=== PATIENT | female | born 1960 | race Caucasian/White ===

== ENCOUNTER 2016-10-06 08:51 | Emergency (ER) | payer BC ==
[2016-10-06 09:28] VITALS: BP 152/84
--- NOTE | 2016-10-06 10:23 | UC ---
Skin Complaint HPI - HPI Summary HPI Summary: Abscess under left arm---began draining this morning---had another one earlier in the week that has spontaneously drained and resolved - History of Current Complaint Chief Complaint: [facility] Time Seen by Provider: 10/06/16 10:09 Stated Complaint: BOIL IN ARMPIT Hx Obtained From: Patient ?: No Onset/Duration: Sudden Onset, Lasting Days - 3, Still Present Timing: Constant Onset Severity: Moderate Current Severity: Moderate Pain Intensity: 7 Pain Scale Used: 0-10 Numeric Location: Discrete - left axilla Character: Pain, Redness Aggravating: Touch Associated Signs & Symptoms: Positive: Negative - Allergy/Home Medications Allergies/Adverse Reactions: Allergies Allergy/AdvReac Type Severity Reaction Status Date / Time No Known Allergies Allergy Verified 10/06/16 09:18 Home Medications: Home Medications Aspirin EC Low Dose* [Ecotrin EC Low Dose 81 MG*] 1 tab DAILY 10/06/16 [History Confirmed 10/06/16] Multiple Vitamins W/ Minerals [Multivitamin Adults 50+] 1 tab DAILY 10/06/16 [ History Confirmed 10/06/16] Review of Systems Constitutional: Negative Skin: Other - Abscess left axilla some surrounding rash (pt has been soaking peroxide on skin) Eyes: Negative ENT: Negative Respiratory: Negative Cardiovascular: Negative Gastrointestinal: Negative Genitourinary: Negative Motor: Negative Neurovascular: Negative Musculoskeletal: Negative Neurological: Negative Psychological: Negative All Other Systems Reviewed And Are Negative: Yes PMH/Surg Hx/FS Hx/Imm Hx Previously Healthy: No Cardiovascular History: Hypertension - non adherant with treatment - Surgical History Surgical History: Yes Surgery Procedure, Year, and Place: CSP FUSION SURGERY. D&C - Family History Known Family History: Positive: None - Social History Occupation: Employed Full-time - house keeper at [employer] Lives: With Family Alcohol Use: None Substance Use Type: None Smoking Status (MU): Never Smoked Tobacco - Immunization History Most Recent Influenza Vaccination: 2016 Most Recent Tetanus Shot: UTD Physical Exam Triage Information Reviewed: Yes Appearance: Well-Appearing, No Pain Distress, Well-Nourished Vital Signs: Initial Vital Signs Temp 97.9 F 10/06/16 09:20 Pulse 67 10/06/16 09:20 Resp 18 10/06/16 09:20 BP 152/84 10/06/16 09:20 Pulse Ox 100 10/06/16 09:20 Vital Signs Reviewed: Yes Eye Exam: Normal Eyes: Positive: Conjunctiva Clear ENT Exam: Normal ENT: Positive: Normal ENT inspection, Hearing grossly normal. Negative: Nasal congestion, Nasal drainage, Trismus, Muffled/hoarse voice Dental Exam: Normal Neck exam: Normal Neck: Positive: Supple, Nontender Respiratory Exam: Normal Respiratory: Positive: Chest non-tender, No respiratory distress, No accessory muscle use Cardiovascular Exam: Normal Cardiovascular: Positive: RRR, Pulses Normal, Brisk Capillary Refill Musculoskeletal Exam: Normal Musculoskeletal: Positive: Strength Intact, ROM Intact, No Edema Neurological Exam: Normal Neurological: Positive: Alert, Muscle Tone Normal Psychological Exam: Normal Skin Exam: Other Skin: Positive: Other - abscess left axilla ---draining purulent drainage induration 5 cm in diameter 3 cm erythema with 4 mm open area draining in center Diagnostics - Laboratory Diagnostic Studies Completed/Ordered: Wound culture obtained Course/Dx - Course Course Of Treatment: culture wound, warm compress, stop silvadene and peroxide, antibidics follow with surgeon, follow BP with pcp recheck this week - Differential Diagnoses - Skin Complaint Differential Diagnoses: Abscess, Contact Dermatitis, Impetigo, MRSA, Other - hypertension, pain - Diagnoses Provider Diagnoses: Abscess left axilla, contact dermititis, hypertension non- adherent to treatment recommendations Discharge - Discharge Plan Condition: Stable Disposition: HOME Prescriptions: Cephalexin CAP* [Keflex CAP*] 500 mg PO QID #40 cap Sulfamethox/Trimethoprim DS* [Bactrim DS 800/160 TAB*] 1 tab PO BID #20 tab Patient Education Materials: Abscess (ED), Hypertension (ED), Warm Compress or Soak (ED) Forms: *Work Release Referrals: [facility] [facility] [Outside] - 1 Week (to follow with a surgeon to manage the abscess and a primary care doctor to manage health and blood pressure)
== END 2016-10-06 10:50 | disposition home or self-care (01) ==
LOC: UCCORT 08:51
DX: L02.412 Cutaneous abscess of left axilla (principal); B95.62 Methicillin resistant Staphylococcus aureus infection as the cause of diseases classified elsewhere; L25.9 Unspecified contact dermatitis, unspecified cause; I10 Essential (primary) hypertension
CPT/HCPCS: 87070; 87077; 87186; 87205; 87640; 87641; 99212; G0463